=== PATIENT | female | born 1945 | race Caucasian/White ===

== ENCOUNTER → 2017-10-16 13:09 | Outpatient (CLI) | payer MEDICARE, OTHER, SELFPAY ==
--- NOTE | 2017-10-16 13:09 | DT_ITS ---
This patient was seen during an EMR downtime October 13, 2017 - October 20, 2017. This patient may have a combination of paper and electronic documentation or all paper documentation. All documentation is viewable within the e-chart portion of [employer] for each patient visit.
--- NOTE | 2017-10-16 13:11 | BI_ITS ---
MAMMOGRAPHY - BILATERAL SCREENING REASON FOR EXAM: Female, 72 years old. Routine annual screening examination. PERTINENT HISTORY: Non-contributory. TECHNIQUE: Digital bilateral breast suyapa (3D mammographic acquisition) in the CC and MLO projections. 2-D mediolateral oblique (MLO) and craniocaudad (CC) views of both breasts were obtained. CAD: Full Field Digital Mammography with Computer Added Detection was performed. COMPARISON: Comparison is made with prior study dated August 12, 2016 and July 24, 2015. FINDINGS: Breast Composition: There are scattered areas of fibroglandular density. There are no dominant masses or suspicious calcifications. Stable scattered calcifications in the upper deep medial portion of the left breast. No other significant abnormalities are identified. There has been no significant change since the prior study. BI/SCREENING MAMM (CAD), BILAT IMPRESSION: Stable bilateral screening mammogram. Yearly follow-up mammogram recommended. (A) ASSESSMENT CATEGORY: BIRADS Category 2: Benign. A letter regarding these results will be sent to the patient by the facility within 30 days. Approximately 10% of breast cancers are not detected by mammography. A normal mammogram should not delay biopsy of a clinically suspicious abnormality. [id number] Electronically Signed: Fabián Brandt MD at 9:18 EDT Tel [phone], Service support ,
== END ==
PROVIDERS: Family Provider Family Medicine; PCP Family Medicine; Visit Provider Obstetrics & Gynecology
DX: Z12.31 Encounter for screening mammogram for malignant neoplasm of breast (principal)
CPT/HCPCS: 77063; 77067

== ENCOUNTER → 2018-09-24 | Outpatient (CLI) | payer MEDICARE, OTHER, SELFPAY ==
[2018-09-24 10:24] VITALS: BMI 26.9
--- NOTE | 2018-09-24 10:39 | RAD_ITS ---
STUDY: X-RAY - LEFT KNEE REASON FOR EXAM: Female, 73 years old. Pain following a fall. TECHNIQUE: 4 view(s) of the knee. COMPARISON: Comparison is made with prior study December 10, 2013. FINDINGS: Degenerative spurring is seen along the medial femoral condyle. Normal visualized proximal tibia and fibula. Normal proximal tibiofibular articulation. 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 Normal lateral femorotibial compartment. There is mild degenerative arthrosis of the patellofemoral articulation. The soft tissue structures are unremarkable. RAD/Knee 4 or More Views IMPRESSION: Degenerative arthrosis. Electronically Signed: Fabián Brandt, at 12:13 EDT , Service support ,
--- NOTE | 2018-09-24 10:39 | RAD_ITS ---
STUDY: X-RAY - PELVIS AND RIGHT HIP REASON FOR EXAM: Female, 73 years old. Right hip pain following fall. TECHNIQUE: 3 views of the pelvis and hip. COMPARISON: None. FINDINGS: There is a non-specific bowel gas pattern. There are multiple calcified phleboliths. Normal bilateral iliac wings, sacroiliac joints and visualized sacrum. Normal bilateral superior and inferior pubic rami. Normal pubic symphysis. Normal bilateral ischial tuberosities. Normal visualized femoral head. Normal acetabulum. Normal hip joint. There is a 7.3 mm calcification overlying the greater trochanter of the proximal left femur suggestive of possible bursitis. RAD/HIP, UNI W/ Pelvis 2-3 Views IMPRESSION: No acute abnormality is seen. Electronically Signed: Fabián Brandt, at 12:12 EDT , Service support ,
== END | disposition home or self-care (01) ==
LOC: HPRAD 10:36
PROVIDERS: Family Provider Family Medicine; PCP Family Medicine; Referring Provider Physician Assistant; Visit Provider Physician Assistant
DX: S79.911A Unspecified injury of right hip, initial encounter (principal); S80.02XA Contusion of left knee, initial encounter
CPT/HCPCS: 73502; 73564

== ENCOUNTER → 2018-10-21 | Outpatient (CLI) | payer MEDICARE, OTHER, SELFPAY ==
[2018-09-24 10:24] VITALS: BMI 26.9
--- NOTE | 2018-10-21 10:31 | BI_ITS ---
MAMMOGRAPHY - BILATERAL SCREENING REASON FOR EXAM: Female, 73 years old. Routine annual screening examination. PERTINENT HISTORY: Non-contributory. TECHNIQUE: Digital bilateral breast truman (3D mammographic acquisition) in the CC and MLO projections. 2-D mediolateral oblique (MLO) and craniocaudad (CC) views of both breasts were obtained. CAD: Full Field Digital Mammography with Computer Added Detection was performed. COMPARISON: Comparison is made with prior study dated October 16, 2017 and August 12, 2016. FINDINGS: Breast Composition: There are no dominant masses or suspicious calcifications. No other significant abnormalities are identified. Stable calcification in the upper medial portion of the left breast. BI/SCREEN MAMM (CAD) W/TRUMAN BILAT IMPRESSION: Stable bilateral screening mammogram. Yearly follow-up mammogram recommended. (A) ASSESSMENT CATEGORY: BIRADS Category 2: Benign. A letter regarding these results will be sent to the patient by the facility within 30 days. Approximately 10% of breast cancers are not detected by mammography. A normal mammogram should not delay biopsy of a clinically suspicious abnormality. [id number] Electronically Signed: Fabián Brandt, at 12:30 EDT , Service support ,
== END | disposition home or self-care (01) ==
LOC: OPBI 10:29
PROVIDERS: Family Provider Family Medicine; PCP Family Medicine; Referring Provider Obstetrics & Gynecology; Visit Provider Obstetrics & Gynecology
DX: Z12.31 Encounter for screening mammogram for malignant neoplasm of breast (principal)
CPT/HCPCS: 77063; 77067

== ENCOUNTER → 2019-10-27 08:52 | Outpatient (CLI) | payer MEDICARE, OTHER, SELFPAY ==
[2018-09-24 10:24] VITALS: BMI 26.9
--- NOTE | 2019-10-27 09:06 | CDU_ITS ---
Reason For Study: Carotid stenosis Rt. Velocities/BP Lt. Velocities/BP Prox CCA 99.5/20 cm/sec. Prox CCA 98.1/26.7 cm/sec. Mid CCA 102.1/25.2 cm/sec. Mid CCA 78.3/26.7 cm/sec. Dist CCA 74.7/20 cm/sec. Dist CCA 83.8/28.9 cm/sec. Prox ICA 58.6/17.9 cm/sec. Prox ICA 84.9/12.4 cm/sec. Mid ICA 70.6/26.7 cm/sec. Mid ICA 76.1/30 cm/sec. Dist ICA 96.2/29.8 cm/sec. Dist ICA 80.5/32.5 cm/sec. Rt. ICA/CCA = 1.0. Lt. ICA/CCA = 1.1. Prox ECA 96.9/12.1 cm/sec. Prox ECA 83.8/11.3 cm/sec. Rt. Vert. 53.1/14.6 cm/sec. Lt. Vert. 47.5/15.4 cm/sec. Right Extracranial There is intimal thickening but no significant atherosclerotic plaque noted in the right common carotid artery. There is intimal thickening but no significant atherosclerotic plaque noted in the right internal carotid artery. There is intimal thickening but no significant atherosclerotic plaque noted in the right external carotid artery. Antegrade flow is noted in the right vertebral artery. Left Extracranial There is intimal thickening but no significant atherosclerotic plaque noted in the left common carotid artery. There is intimal thickening but no significant atherosclerotic plaque noted in the left internal carotid artery. There is intimal thickening but no significant atherosclerotic plaque noted in the left external carotid artery. Antegrade flow is noted in the left vertebral artery. There is heterogeneous, irregular atherosclerotic plaque noted in the left bulb. Procedure Carotid Duplex [id number]. Exam performed in department. Interpretation Summary No significant atherosclerotic plaque or stenosis noted in the internal carotid arteries bilaterally. Flow within the vertebral arteries is antegrade bilaterally. Heterogeneous, irregular atherosclerotic plaque is noted in the left carotid bulb, which does not appear to be hemodynamically significant. Ordering Physician: Ruby Wesley Referring Physician: Ruby Wesley Performed By: Janice Mcnally RVT
--- NOTE | 2019-10-27 09:06 | ECHOD_ITS ---
Reason For Study: MURMUR Procedure This was a 2D Doppler, Color Flow transthoracic echocardiogram. Exam performed in department. Left Ventricle Normal LV size. Left ventricular systolic function is normal. The estimated ejection fraction is 60 %. Stage 1 diastolic dysfunction. No regional wall motion abnormalities noted. Right Ventricle Normal RV size. Normal systolic function. Atria Normal left atrium. Normal right atrium. Mitral Valve There is mild to moderate mitral annular calcification. Tricuspid Valve Normal tricuspid valve. Mild (1+) tricuspid valve insufficiency. Pulmonary artery systolic pressure is 28 mmHg. Aortic Valve Trisinus/trileaflet aortic valve. Great Vessels Normal aortic root. The pulmonary artery is normal size. Normal inferior vena cava. Pericardium/Pleural No pericardial effusion. MMode/2D Measurements & Calculations LVIDd: 4.4 cm IVSd: 0.94 cm Ao root diam: 3.7 cm LVIDs: 2.7 cm LVPWd: 0.95 cm RVDd: 3.2 cm FS: 37.6 % LAV(MOD-bp): 48.1 ml LVAd ap4: 27.8 cm2 SV(MOD-sp4): 53.1 ml LAV(MOD-bp) Indexed: 29.0 ml/m2 EDV(MOD-sp4): 80.9 ml LAV(MOD-sp2): 32.5 ml EDV(sp4-el): 81.2 ml LAV(MOD-sp4): 52.9 ml LVAs ap4: 14.4 cm2 ESV(MOD-sp4): 27.9 ml ESV(sp4-el): 27.3 ml EF(MOD-sp4): 65.5 % EF(sp4-el): 66.4 % SV(sp4-el): 53.9 ml LA dimension(2D): 4.1 cm LA A4 area: 18.8 cm2 RA A4 area: 13.9 cm2 Time Measurements MV dec time: 0.28 sec Doppler Measurements & Calculations MV E max jossue: 63.9 cm/sec Lat Peak E' Jossue: 5.7 cm/sec Med Peak E' Jossue: 4.3 cm/sec MV A max jossue: 113.5 cm/sec E/E' lat: 11.1 E/E' med: 14.8 MV E/A: 0.56 MV V2 max: 119.8 cm/sec Ao V2 max: 138.5 cm/sec LV V1 max: 95.8 cm/sec MV max P.7 mmHg Ao max P.7 mmHg LV V1 max P.7 mmHg MV V2 mean: 60.8 cm/sec Ao V2 mean: 95.5 cm/sec LV V1 mean P.3 mmHg MV mean P.8 mmHg Ao mean P.1 mmHg LV V1 mean: 71.7 cm/sec MV V2 VTI: 30.2 cm Ao V2 VTI: 28.4 cm LV V1 VTI: 23.1 cm TR max jossue: 243.4 cm/sec MV P1/2t-pr_phl: 96.6 msec TR max P.7 mmHg Interpretation Summary Normal LV size. Left ventricular systolic function is normal. The estimated ejection fraction is 60 %. Stage 1 diastolic dysfunction. There is mild to moderate mitral annular calcification. Ordering Physician: Ruby Wesley Referring Physician: Ruby Wesley Performed By: Jyade Benitez, ROXY, RVT
--- NOTE | 2019-10-27 10:52 | BI_ITS ---
MAMMOGRAPHY - BILATERAL SCREENING REASON FOR EXAM: Female, 74 years old. Routine annual screening examination. PERTINENT HISTORY: Aunt with breast cancer. TECHNIQUE: Digital bilateral breast truman (3D mammographic acquisition) in the CC and MLO projections. 2-D mediolateral oblique (MLO) and craniocaudad (CC) views of both breasts were obtained. CAD: Full Field Digital Mammography with Computer Added Detection was performed. COMPARISON: Comparison is made with prior examination dated October 21, 2018 and October 16, 2017. FINDINGS: Breast Composition: There are scattered areas of fibroglandular density. There are no dominant masses or suspicious calcifications. Stable grouping of the calcifications in the slightly upper deep medial portion of the left breast. No other significant abnormalities are identified. There has been no significant change since the prior study. BI/SCREEN MAMM (CAD) W/TRUMAN BILAT IMPRESSION: Stable bilateral screening mammogram. Yearly follow-up mammogram recommended. (A) ASSESSMENT CATEGORY: BIRADS Category 2: Benign. A letter regarding these results will be sent to the patient by the facility within 30 days. Approximately 10% of breast cancers are not detected by mammography. A normal mammogram should not delay biopsy of a clinically suspicious abnormality. [id number] Electronically Signed: Fabián Brandt, at 12:31 EDT , Service support ,
--- NOTE | 2019-10-27 10:53 | BD_ITS ---
STUDY: DUAL ENERGY X-RAY ABSORPTIOMETRY / DXA REASON FOR EXAM: Female, 74 years old. Patient is postmenopausal. Loss of height. TECHNIQUE: Bone Mineral Density (BMD) measurements of lumbar spine and bilateral hips were obtained. COMPARISON: Comparison is made with prior study dated August 09, 2008. FINDINGS: Lumbar Spine (L1-L4): g/cm2 (0.983) / T-score (-1.6) / Z-score (0.2) Findings are suggestive of osteopenia with a moderate fracture risk. Left Femur Total: g/cm2 (0.829) / T-score (-1.4) / Z-score (0.4) Left Femoral Neck: g/cm2 (0.820) / T-score (-1.6) / Z-score (0.4) Right Femur Total: g/cm2 (0.794) / T-score (-1.7) / Z-score (0.1) Right Femoral Neck: g/cm2 (0.839) / T-score (-1.4) / Z-score (0.6) The T-Scores on the most recent prior examination were: Lumbar Spine (L1-L4): There has been worsening of bone density since the previous examination. Left Femur Total: which represents a worsening of 6.3%. Right Femur Total: which represents a worsening of 9.4%. BD/Dexa Bone Density Study IMPRESSION: The patient is considered osteopenic as outlined below according to World Harvey Organization (WHO) criteria with a moderate fracture risk. There has been worsening of bone density since the previous examination. Reference Information: The T-score is the number of standard deviations above or below the standard which is normal for young adults at their peak bone mineral density. The World Health Organization (WHO) interprets the T-scores as follows: Above -1 Normal bone density Between -1 and -2.5 Osteopenia Equal to / or below -2.5 Osteoporosis As a practical clinical guideline, osteopenia may be graded as follows: Mild -1 through -1.5 Moderate -1.6 through -2.0 Severe -2.1 through -2.4 The Z-score is the number of standard deviations above or below age-matched controls. A Z-score of less than -1.5 would be considered abnormal. References: 1. NIH Osteoporosis and Related Bone Diseases http://www.osteo.org 2. International Society for Clinical Densitometry http://www.iscd.org 3. National Osteoporosis Foundation http://www.nof.org Electronically Signed: Fabián Brandt, at 13:33 EDT , Service support ,
== END ==
PROVIDERS: PCP Nurse Practitioner Family; Referring Provider Nurse Practitioner Family; Visit Provider Nurse Practitioner Family
DX: I65.22 Occlusion and stenosis of left carotid artery (principal); R01.1 Cardiac murmur, unspecified; M81.0 Age-related osteoporosis without current pathological fracture; Z12.31 Encounter for screening mammogram for malignant neoplasm of breast
CPT/HCPCS: 77063; 77067; 77080; 93306; 93880

== ENCOUNTER 2020-07-10 08:28 | Outpatient (RCR) | payer MEDICARE, OTHER, SELFPAY ==
[2018-09-24 10:24] VITALS: BMI 26.9
== END 2020-07-10 23:59 ==
LOC: IMMUN 08:28
PROVIDERS: PCP Nurse Practitioner Family; Visit Provider Family Medicine
DX: Z23 Encounter for immunization (principal)
CPT/HCPCS: 0011A; 0012A

== ENCOUNTER → 2020-12-08 08:38 | Outpatient (CLI) | payer MEDICARE, OTHER, SELFPAY ==
[2018-09-24 10:24] VITALS: BMI 26.9
--- NOTE | 2020-12-08 10:00 | BI_ITS ---
MAMMOGRAPHY - BILATERAL SCREENING 3-D TOMOSYNTHESIS REASON FOR EXAM: Female, 75 years old. Routine screening PERTINENT HISTORY: Aunt with breast cancer.. TECHNIQUE: 2-D mammograms and 3-D Tomosynthesis of the breast (s) were performed. CAD was performed. COMPARISON: 10/27/2019 FINDINGS: The breast composition is composed of scattered fibroglandular density. Scattered benign calcifications are seen. No dense spiculated masses or suspicious microcalcifications are identified. No architectural distortion is identified. There is no skin thickening or retraction. There has been no significant change since the prior study. BI/SCRN MAMM (CAD)W/TRUMAN BILAT IMPRESSION: No mammographic signs of malignancy. Routine yearly mammograms recommended. ASSESSMENT CATEGORY: BIRADS Category 2: Benign. A letter regarding these results will be sent to the patient by the facility within 30 days. FOLLOW UP RECOMMENDATION: Yearly follow up mammogram recommended. (A) Approximately 10% of breast cancers are not detected by mammography. A normal mammogram should not delay biopsy of a clinically suspicious abnormality. Electronically Signed: Bipin Adams MD at 11:06 EDT , Service support ,
== END ==
PROVIDERS: PCP Nurse Practitioner Family; Referring Provider Nurse Practitioner Family; Visit Provider Nurse Practitioner Family
DX: Z12.31 Encounter for screening mammogram for malignant neoplasm of breast (principal)
CPT/HCPCS: 77063; 77067

== ENCOUNTER → 2021-12-12 | Outpatient (CLI) | payer MEDICARE, OTHER, SELFPAY ==
--- NOTE | 2021-12-12 12:23 | BI_ITS ---
MAMMOGRAPHY - BILATERAL SCREENING 3-D TOMOSYNTHESIS REASON FOR EXAM: Female, 76 years old. Annual screening mammogram. PERTINENT HISTORY: History of breast cancer in aunt. TECHNIQUE: 2-D mammograms and 3-D Tomosynthesis of the breast (s) were performed. CAD was performed. COMPARISON: 11/08/2020, 10/27/2019, 12/08/2020. FINDINGS: The breast composition is composed of scattered fibroglandular density. Stable bilateral benign calcifications, left greater than right. No dense spiculated masses or suspicious microcalcifications are identified. No architectural distortion is identified. There is no skin thickening or retraction. BI/SCRN MAMM (CAD)W/TRUMAN BILAT IMPRESSION: No interval change and no mammographic signs of malignancy. Routine yearly mammograms recommended. ASSESSMENT CATEGORY: BIRADS Category 2: Benign. A letter regarding these results will be sent to the patient by the facility within 30 days. FOLLOW UP RECOMMENDATION: Yearly follow up mammogram recommended. (A) Approximately 10% of breast cancers are not detected by mammography. A normal mammogram should not delay biopsy of a clinically suspicious abnormality. Electronically Signed: Ricardo Morin MD at 9:56 EDT ,
== END | disposition home or self-care (01) ==
LOC: OPBI 12:20
PROVIDERS: PCP Nurse Practitioner Family; Visit Provider Nurse Practitioner Family
DX: Z12.31 Encounter for screening mammogram for malignant neoplasm of breast (principal)
CPT/HCPCS: 77063; 77067

== ENCOUNTER 2022-04-02 08:57 | Outpatient (CLI) | payer MEDICARE, OTHER, SELFPAY ==
--- NOTE | 2022-04-02 09:05 | BD_ITS ---
STUDY: DUAL ENERGY X-RAY ABSORPTIOMETRY / DXA REASON FOR EXAM: Female, 76 years old. OSTEO TECHNIQUE: Bone Mineral Density (BMD) measurements of lumbar spine and bilateral hips were obtained. COMPARISON: Comparison is made with prior study dated 10/27/2019. FINDINGS: Lumbar Spine (L1-L4): g/cm2 (0.859) / T-score (-1.7) / Z-score (0.9) Findings are suggestive of osteopenia with a moderate fracture risk. Left Femur Total: g/cm2 (0.740) / T-score (-1.7) / Z-score (0.3) Left Femoral Neck: g/cm2 (0.646) / T-score (-1.8) / Z-score (0.4) Right Femur Total: g/cm2 (0.726) / T-score (-1.8) / Z-score (0.2) Right Femoral Neck: g/cm2 (0.627) / T-score (-2.0) / Z-score (0.3) The T-Scores on the most recent prior examination were: Lumbar Spine (L1-L4): There has been worsening of bone density since the previous examination. Left Femur Total: which represents a worsening of 3.7%. Right Femur Total: which represents a worsening of 1.1%. BD/Dexa Bone Density Study IMPRESSION: The patient is considered osteopenic as outlined below according to World Harvey Organization (WHO) criteria with a moderate fracture risk. There has been worsening of bone density since the previous examination. Reference Information: The T-score is the number of standard deviations above or below the standard which is normal for young adults at their peak bone mineral density. The World Health Organization (WHO) interprets the T-scores as follows: Above -1 Normal bone density Between -1 and -2.5 Osteopenia Equal to / or below -2.5 Osteoporosis As a practical clinical guideline, osteopenia may be graded as follows: Mild -1 through -1.5 Moderate -1.6 through -2.0 Severe -2.1 through -2.4 The Z-score is the number of standard deviations above or below age-matched controls. A Z-score of less than -1.5 would be considered abnormal. References: 1. NIH Osteoporosis and Related Bone Diseases www osteo.org 2. International Society for Clinical Densitometry www iscd.org 3. National Osteoporosis Foundation www nof.org Electronically Signed: Fabián Brandt MD at 9:00 EST ,
== END 2022-04-02 23:59 | disposition home or self-care (01) ==
LOC: OPBD 08:57
PROVIDERS: PCP Nurse Practitioner Family; Referring Provider Nurse Practitioner Family; Visit Provider Nurse Practitioner Family
DX: M85.89 Other specified disorders of bone density and structure, multiple sites (principal)
CPT/HCPCS: 77080

== ENCOUNTER → 2022-12-30 | Outpatient (CLI) | payer MEDICARE, OTHER, SELFPAY ==
--- NOTE | 2022-12-30 13:42 | BI_ITS ---
MAMMOGRAPHY - BILATERAL SCREENING REASON FOR EXAM: Female, 77 years old. Routine annual screening examination. PERTINENT HISTORY: Aunt with breast cancer. TECHNIQUE: Digital bilateral breast truman (3D mammographic acquisition) in the CC and MLO projections. 2-D mediolateral oblique (MLO) and craniocaudad (CC) views of both breasts were obtained. CAD: Full Field Digital Mammography with Computer Added Detection was performed. COMPARISON: Screening mammogram from 12/12/2021, 12/08/2020. FINDINGS: Breast Composition: There are scattered areas of fibroglandular density. There are no dominant masses or suspicious calcifications. Stable bilateral benign-appearing breast calcifications, greater in the left breast. No other significant abnormalities are identified. There has been no significant change since the prior study. BI/SCRN MAMM (CAD)W/TRUMAN BILAT IMPRESSION: Stable bilateral screening mammogram. Yearly follow-up mammogram recommended. (A) ASSESSMENT CATEGORY: BIRADS Category 2: Benign. A letter regarding these results will be sent to the patient by the facility within 30 days. Approximately 10% of breast cancers are not detected by mammography. A normal mammogram should not delay biopsy of a clinically suspicious abnormality. Electronically Signed: Silas Albert DO at 16:05 EDT ,
== END | disposition home or self-care (01) ==
LOC: OPBI 13:39
PROVIDERS: PCP Nurse Practitioner Family; Referring Provider Nurse Practitioner Family; Visit Provider Nurse Practitioner Family
DX: Z12.31 Encounter for screening mammogram for malignant neoplasm of breast (principal); Z80.3 Family history of malignant neoplasm of breast
CPT/HCPCS: 77063; 77067

== ENCOUNTER 2023-01-29 17:36 | Emergency (ER) | payer MEDICARE, OTHER, SELFPAY ==
[2023-01-29 17:37] VITALS: BP 189/90; PULSE 80; RESP 16; TEMP 36.4; O2SAT 98; BMI 26.4
--- NOTE | 2023-01-29 18:30 | EX.ED.DYSGE1 ---
HPI <LORENA Noonan - Last Filed: 01/29/23 19:59> History of Present Illness Chief Complaint: Hypertension Narrative Narrative: Patient presenting today with concerns for elevated blood pressure. She reports that she was at the dentist this morning and her blood pressure was 164/96. They then took it again and was around 200 systolic. She went home and began taking her blood pressure throughout the day and noticed that it was continuously elevated. She reports that she feels, absolutely fine. She does not normally check her blood pressure but does have a history of hypertension and takes losartan and hydrochlorothiazide. She is compliant with her medication. She was last at her PCP a week ago where her blood pressure was normal. She denies any chest pain, shortness of breath, visual changes, dizziness. PFSH <LORENA Noonan - Last Filed: 01/29/23 19:59> PFSH Medical History history of colonoscopy complication Hypertension polyps removal Vertigo Home Medications losartan 100 mg-hydrochlorothiazide 25 mg tablet 1 tab PO DAILY #1 TAB 07/28/14 [Rx Last Taken 09/28/15 08:00] Allergy/AdvReac Type Severity Reaction Status Date / Time No Known Allergies Allergy Verified 01/29/23 17:37 Family History Other Cancer Diabetes Social History Smoking Status: Never smoker alcohol intake: never ROS <LORENA Noonan - Last Filed: 01/29/23 19:59> ROS ED Constitutional Constitutional ED: Denies chills or fever(s) Eyes Eyes: Denies change in vision Cardiovascular Cardiovascular: Denies chest pain or palpitations Respiratory/Chest Respiratory/Chest: Denies cough or dyspnea Gastrointestinal Gastrointestinal: Denies abdominal pain, nausea or vomiting Musculoskeletal Musculoskeletal: Denies arthralgias or myalgias Neurologic Neurologic: Denies dizziness, headache(s), paresthesias or weakness EXAM <LORENA Noonan - Last Filed: 01/29/23 19:59> Physical Exam Const Vital Signs: 01/29/23 17:37 01/29/23 19:30 01/29/23 19:31 Temperature 97.5 F L Temperature Source Temporal Pulse Rate 80 Respiratory Rate 16 16 Respiratory Pattern Normal Blood Pressure 189/90 H Blood Pressure Mean 123 Pulse Ox 98 Positive well nourished, well developed and no apparent distress General Appearance ED: well developed HEENT Reports normocephalic and head/scalp atraumatic Mouth ED: Yes moist mucous membranes normal Eyes PERRL and EOMs intact bilaterally Neck full ROM and supple Chest Wall inspection of chest normal Resp normal respiratory effort and clear to auscultation bilaterally Cardio regular rate and regular rhythm GI soft to palpation, non-tender, non-distended and no masses Back/Spine normal ROM and normal to inspection Extremity normal to inspection and full ROM Neuro oriented x3, CN's II-XII intact bilaterally, moves all extremities, no focal motor deficits and no sensory deficits noted Sensorium / Orientation: awake and alert Psych mental status grossly normal and thought process normal Skin no rashes or lesions noted and no wounds <Dr. Mikey Wilder MD - Last Filed: 01/29/23 19:13> Physical Exam Const Vital Signs: 01/29/23 17:37 01/29/23 19:30 01/29/23 19:31 Temperature 97.5 F L Temperature Source Temporal Pulse Rate 80 Respiratory Rate 16 16 Respiratory Pattern Normal Blood Pressure 189/90 H Blood Pressure Mean 123 Pulse Ox 98 MDM <LORENA Noonan - Last Filed: 01/29/23 19:59> [facility] Narrative Medical decision making narrative: Patient presenting with asymptomatic hypertension. She is on antihypertensives at home. She is well-appearing and in no acute distress, she is around 189/90 here. I have encouraged her to begin taking her blood pressure twice a day and monitoring this so that she can show her PCP and medication changes can be made if needed. She has an NIH of 0. I do not feel that any labs or imaging is indicated at this time. She is comfortable with being discharged home. I do not feel that she needs any treatment at this time. She will be discharged home in stable condition and is comfortable with plan. I have personally performed a face to face assessment of the patient and have reviewed the MANSI Note. I performed a substantive portion of the visit including all aspects of the following. My hedrick findings include: History is 77-year-old female with known history of hypertension on losartan and hydrochlorothiazide. Was at the dentist office today had elevated blood pressure so they sent her to be evaluated. She denies any complaints. No chest pain. No headache. Exam is [well-appearing 77-year-old female. Initial blood pressure 189/90. HEENT exam unremarkable. Lungs clear. Heart regular rhythm. Abdomen soft nontender. Neurologically she is awake and alert with no focal motor deficits. 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 Normal speech. NIH is 0. ] Medical Decision Making [patient doing well. Asymptomatic. She is comfortable being discharged home with outpatient follow-up. Acute on chronic hypertension.] Other additions or changes: [None] <Dr. Mikey Wilder MD - Last Filed: 01/29/23 19:13> [facility] MDM Narrative Medical decision making narrative: I have personally performed a face to face assessment of the patient and have reviewed the MANSI Note. I performed a substantive portion of the visit including all aspects of the following. My hedrick findings include: History is 77-year-old female with known history of hypertension on losartan and hydrochlorothiazide. Was at the dentist office today had elevated blood pressure so they sent her to be evaluated. She denies any complaints. No chest pain. No headache. Exam is [well-appearing 77-year-old female. Initial blood pressure 189/90. HEENT exam unremarkable. Lungs clear. Heart regular rhythm. Abdomen soft nontender. Neurologically she is awake and alert with no focal motor deficits. 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 Normal speech. NIH is 0. ] Medical Decision Making [patient doing well. Asymptomatic. She is comfortable being discharged home with outpatient follow-up. Acute on chronic hypertension.] Other additions or changes: [None] History & Record Review Discussion w/independent historian: Patient and Family Discharge Plan Triage Chief Complaint: Hypertension ED Midlevel Provider: Kristy Huddleston ED Provider: Mikey Wilder Dx/Rx/DC Orders Clinical Impression: Hypertension Instructions: Controlling High Blood Pressure Prescriptions: No Action losartan-hydrochlorothiazide 1 TAB tablet 1 tab PO DAILY Qty: 1 0RF Patient Comments: blood pressure Primary Care Provider: Ruby Wesley TRAINING AND DEVELOPMENT SPECIALIST Referrals: Ruby Wesley TRAINING AND DEVELOPMENT SPECIALIST, TRAINING AND DEVELOPMENT SPECIALIST-C [Primary Care Provider] - 5-7 Days Activity Restrictions/Additional Instructions: Begin keeping track of your blood pressure and follow-up with your PCP. Return for any worsening of your symptoms. Disposition Disposition: Home, Self Care Discharge Date/Time: 01/29/23 19:32
[2023-01-29 19:31] VITALS: RESP 16
== END 2023-01-29 19:32 | disposition home or self-care (01) ==
PROVIDERS: Emergency Provider Emergency Medicine; PCP Nurse Practitioner Family; Visit Provider Emergency Medicine
DX: I10 Essential (primary) hypertension (principal); Z79.899 Other long term (current) drug therapy
CPT/HCPCS: 99282

== ENCOUNTER → 2023-03-06 | Outpatient (CLI) | payer MEDICARE, OTHER, SELFPAY ==
--- NOTE | 2023-03-06 12:53 | ECHOD_ITS ---
Reason For Study: MITRAL ANNULAR CALCIFICATION Procedure This was a 2D Doppler, Color Flow transthoracic echocardiogram. Exam performed in department. Left Ventricle Normal size and thickness. The left ventricular ejection fraction is 65 %. Stage 2 diastolic dysfunction. Right Ventricle Normal right ventricle. Atria The left atrium is mildly enlarged. Normal right atrium. Mitral Valve There is Mild focal posterior mitral annular calcification. Mild (1+) mitral valve insufficiency. Tricuspid Valve Mild tricuspid valve insufficiency. Right ventricular systolic pressure estimated to be 35 mmHg. Aortic Valve Trisinus/trileaflet aortic valve. Pulmonic Valve The pulmonic valve is not well visualized. Mild (1+) pulmonic valve insufficiency. Great Vessels Normal sized aortic root. Pericardium/Pleural No pericardial effusion. Epicardial fat. MMode/2D Measurements & Calculations LVIDd: 4.9 cm IVSd: 0.87 cm Ao root diam: 3.2 cm LVIDs: 3.0 cm LVPWd: 1.0 cm RVDd: 3.1 cm FS: 37.4 % LAV(MOD-bp): 69.6 ml LVAd ap4: 28.1 cm2 LVAd ap2: 22.7 cm2 LAV(MOD-bp) Indexed: 40.7 ml/m2 LVLd ap4: 7.8 cm LVLd ap2: 7.0 cm LAV(MOD-sp2): 63.8 ml EDV(MOD-sp4): 83.2 ml EDV(MOD-sp2): 59.7 ml LAV(MOD-sp4): 71.4 ml EDV(sp4-el): 86.1 ml EDV(sp2-el): 62.6 ml LVAs ap4: 14.5 cm2 LVAs ap2: 11.9 cm2 LVLs ap4: 6.5 cm LVLs ap2: 6.5 cm ESV(MOD-sp4): 29.8 ml ESV(MOD-sp2): 18.7 ml ESV(sp4-el): 27.6 ml ESV(sp2-el): 18.5 ml EF(MOD-sp4): 64.2 % EF(MOD-sp2): 68.7 % EF(sp4-el): 68.0 % SV(MOD-sp4): 53.4 ml SV(MOD-sp2): 41.0 ml SV(sp4-el): 58.5 ml LA dimension(2D): 4.2 cm LA A4 area: 21.7 cm2 RA A4 area: 12.7 cm2 TAPSE: 2.4 cm Time Measurements MV dec time: 0.25 sec Doppler Measurements & Calculations MV E max jossue: 76.8 cm/sec Lat Peak E' Jossue: 8.2 cm/sec Med Peak E' Jossue: 6.0 cm/sec MV A max jossue: 113.1 cm/sec E/E' lat: 9.3 E/E' med: 12.7 MV E/A: 0.68 MV V2 max: 126.1 cm/sec MV P1/2t max jossue: 82.0 cm/sec Ao V2 max: 188.3 cm/sec MV max P.4 mmHg MV P1/2t: 79.7 msec Ao max P.2 mmHg MV V2 mean: 68.1 cm/sec MV dec slope: 301.4 cm/sec2 Ao V2 mean: 126.2 cm/sec MV mean P.1 mmHg Ao mean P.4 mmHg MV V2 VTI: 30.6 cm MVA(P1/2t): 2.8 cm2 Ao V2 VTI: 44.5 cm AV (velocity ratio): 0.65 LV V1 max: 115.2 cm/sec PA V2 max: 133.9 cm/sec TR max jossue: 310.6 cm/sec LV V1 max P.3 mmHg PA V2 mean: 93.5 cm/sec TR max P.0 mmHg LV V1 mean P.0 mmHg LV V1 mean: 81.0 cm/sec LV V1 VTI: 28.8 cm ECHO/Echo Complete Interpretation Summary The left ventricular ejection fraction is 65 %. Stage 2 diastolic dysfunction. The left atrium is mildly enlarged. Mild (1+) mitral valve insufficiency. There is Mild focal posterior mitral annular calcification. Mild (1+) pulmonic valve insufficiency. Mild tricuspid valve insufficiency. Ordering Physician: Margie Adams Referring Physician: Margie Adams Performed By: Gwendolyn Langley, ROXY, RVT
== END | disposition home or self-care (01) ==
LOC: CVS 12:52
PROVIDERS: PCP Nurse Practitioner Family
DX: I10 Essential (primary) hypertension (principal); I34.81 Nonrheumatic mitral (valve) annulus calcification
CPT/HCPCS: 93306

== ENCOUNTER → 2023-10-09 | Outpatient (CLI) | payer MEDICARE, OTHER, SELFPAY ==
--- NOTE | 2023-10-09 08:39 | CT_ITS ---
STUDY: CT ABDOMEN AND PELVIS WITH CONTRAST REASON FOR EXAM: Female, 78 years old. LUQ MASS ON RAD RADIATION DOSAGE (If Supplied By Facility): CTDIvol = ( 13.84 ) mGy, DLP = ( 656.39 ) mGycm TECHNIQUE: IV 100mL Isovue-300 was administered. Transaxial images were obtained from the dome of the diaphragm to the symphysis pubis in the arterial, nephrographic and excretory phases. Multiplanar coronal and sagittal images were reformatted. The protocol utilizes one or more of the following dose reduction techniques: automated exposure control, adjustment of mA and/or kV according to patient size,and/or use of iterative reconstruction technique. COMPARISON: Prior study dated: 09/29/2015 FINDINGS: The visualized lung bases are unremarkable. The visualized portions of the heart are within normal limits. Normal liver. No evidence of calcified gallstones. Small density in the dome of the gallbladder could represent small gallbladder polyp. Normal spleen. Normal pancreas. Stable 1.3 cm right adrenal adenoma. Large cystic lesion in the left adrenal gland with peripheral calcifications measuring about 7 x 6.7 x 5.5 cm essentially unchanged since prior exam. There is a small hiatal hernia. Normal in caliber small bowel loops. Sigmoid diverticulosis without evidence of acute diverticulitis. The appendix is visualized and appears normal. There is atherosclerotic calcification of the abdominal aorta with elongation and tortuosity, but without a demonstrated aneurysm. No retroperitoneal adenopathy. 8 mm simple cyst in the lower pole of the right kidney. Anteriorly malrotated left kidney. 6 mm nonobstructing stone in the right kidney unchanged. No evidence of hydronephrosis. Normal urinary bladder. Uterine calcifications consistent with calcified uterine fibroids. No free fluid. Tiny umbilical hernia containing fat. Degenerative changes of the spine. Narrowing of L3-L4 disc space with grade 1 anterolisthesis of L3 over L4 unchanged. CT/Abdomen/Pelvis W IV Cont ONLY IMPRESSION: 1. No focal acute inflammatory process. 2. Large left adrenal calcified cystic lesion unchanged prior exam could be due to previous hemorrhage. 3. Small nonobstructing left renal stone without evidence of hydronephrosis. 4. Diverticulosis without evidence of acute diverticulitis. Electronically Signed: Romel Ibrahim MD at 11:10 EDT ,
[2023-10-09 09:30] LABS: CREATININE FINGERSTICK < 1.0 mg/dL (0.55-1.02); EGFR FINGERSTICK > 60.0000 mL/min (>60)
== END | disposition home or self-care (01) ==
LOC: CT 08:31
PROVIDERS: PCP Nurse Practitioner Family; Referring Provider Nurse Practitioner Family; Visit Provider Nurse Practitioner Family
DX: R19.02 Left upper quadrant abdominal swelling, mass and lump (principal)
CPT/HCPCS: 74177; Q9967

== ENCOUNTER 2023-11-17 10:00 | Outpatient (RCR) | payer MEDICARE, OTHER, SELFPAY ==
--- NOTE | 2023-10-13 13:45 | HP.PTEVAL_ITS ---
Patient's Visit Information Visit Information Visit Information: ANA OMER is a 78 year old F referred to Physical Therapy by Dr. Ishan Vega DO with a diagnosis of SCIATICA LEFT SIDE. Date of Evaluation: 10/13/23 Physical Therapist: Aleksandr Aguayo, PT, Cert MDT, OCS Visit Plan Frequency: 2x /Week Duration: 4 Weeks Plan: PT INTERVENTIONS LUMBAR FLEXION ,DLS ,POSTURAL EX'S ,STRENGTHENING AND MODALITIES NEEDED Subjective Subjective: This 78 y/o female presents to physical therapy with lumbar radiculopathy. Patient has had left sciatica ~ 2 months. Seen Orthopedics ,did x-rays lumbar DDD ,and had CTSCAN due to finding a mass. Patient tried prednisone. Tried meloxicam . Patient reports ~ 50 % better. Location lateral leg to knee no back pain. Patient denies paresthesia/tingling ,symptoms described as ache. Coughing/sneezing-. Bowel/bladder-. Patient pain affects sleeping. Patient aggravating standing ,walking ,in/out car,bending /lifting. Alleviating factors rest heat. Patient condition affects QOL and function. Patient dealing with vertigo. Patient goals decrease pain and walk. SOCIAL: VOCATION: retire Pain Left Lower Extremity: Pain Intensity (Out of 10): 6 Pain Intensity Range: 10 Objective Objective: POSTURE : WFL PALAPTION: unremarkable SYMMETRIES: align NEURO: denies paresthesia/tingling ,reflexes L3-4 ,L4-5 ,L5- S1 1/3 MMT: quads/hams 4/5 ,hip flexion /abduction 4/5 ,ankle 4/5 PROM: hip IR 20 degrees bilateral LUMBAR ROM: flexion/extension WFL ,side glides min tight Special Tests L/S Slump test left side: Negative L/S Slump test right side: Negative L/S Left Straight Leg Raise: Negative L/S Right Straight Leg Raise: Negative Lumbar Standing: Flexion - Mechanical Response: No effect Lumbar Standing: Flexion - Symptoms During Testing: No effect Lumbar Standing: Flexion - Symptoms After Testing: No effect Lumbar Standing: Extension - Mechanical Response: No effect Lumbar Standing: Extension - Symptoms During Testing: No effect Lumbar Standing: Extension - Symptoms After Testing: No effect Lumbar Standing: Right Side Glides - Mechanical Response: No effect Lumbar Standing: Right Side [place] - Symptoms During Testing: No effect Lumbar Standing: Right Side [place] - Symptoms After Testing: No effect Lumbar Standing: Left Side [place] - Mechanical Response: No effect Lumbar Standing: Left Side [place] - Symptoms During Testing: No effect Lumbar Standing: Left Side [place] - Symptoms After Testing: No effect Lumbar Lying: Flexion - Mechanical Response: No effect Lumbar Lying: Flexion - Symptoms During Testing: Decreases Lumbar Lying: Flexion - Symptoms After Testing: No better Comments:: Seated back flexion Balance/Special Test Scores Oswestry Low Back Score: 24 Goals Goal 1:: Patient to be I with HEP for back Goal Time Frame: 4-6 Weeks Goal 2:: Patient to improve lumbar ROM for function of recovery for lifting for housework tasks Goal Time Frame: 4-6 Weeks Goal 3:: Patient to demonstrate 50% improvement with less pain and improved function Goal Time Frame: 4-6 Weeks Goal 4:: Patient to improve back oswestry score by 5 points to improve QOL Goal Time Frame: 4-6 Weeks Goal 5:: Patient to improve ADLS and housework tasks with standing/walking with min limitations Rehabilitation Potential Physical Therapy Diagnosis: This patient has lumbar radiculopathy with pain worse with standing and walking and increases with positioning and motion testing thus benefit from skilled PT Rehabilitation Potential: Good Anticipated Interventions Patient/Client Instruction: Educate patient on: Condition and Plan of Care For the Purpose of:: To decrease pain, To increase ROM, To improve muscle performance and motor function, To improve ability to perform ADL's, To increase tolerance to activity/condition/position, To improve ability of physical actions for home/community/work/leisure, To improve health of tissue, To decrease soft tissue restriction, To increase flexibility/ROM and To improve tolerance to ADL's Therapeutic Exercise to Include: Strength training, Body mechanics, Postural training, Flexibilty training and Dynamic Lumbar Stabilization For the Purpose of:: To decrease pain, To increase ROM, To improve muscle performance and motor function, To improve ability to perform ADL's, To increase tolerance to activity/condition/position, To improve ability of physical actions for home/community/work/leisure, To improve health of tissue, To decrease soft tissue restriction, To increase flexibility/ROM and To improve tolerance to ADL's TENS: Yes IF ES: Yes Cryotherapy (ice pack, ice massage): Yes Thermo therapy (hot pack): Yes Ultrasound (thermal/non thermal): Yes For the Purpose of:: To decrease pain, To increase ROM, To improve health of tissue and To decrease soft tissue restriction Text: Thank you for the opportunity to evaluate your patient. For Medicare and Medicare HMO plans, please review the plan of care and approve it. It will need to be FAXED BACK to us at [phone] for Medicare purposes. For Medicare only, by signing this I certify the plan of care. Please let me know if there are questions or concerns regarding this plan of care. Physician Signature: Date:
--- NOTE | 2023-11-17 10:50 | HP.PTDCSUM ---
Discharge Summary D/C summary: It has been my pleasure to treat ANA OMER referred by Dr. Ishan Vega DO, with the diagnosis of SCIATICA LEFT SIDE for a total of 10 visit(s). Discharge Date: Please see the following information for a summary of their discharge status. Subjective Subjective: Doing well Pain Left Lower Extremity: Pain Intensity (Out of 10): 0 Overall Improvement % Improvement: 100 Objective Objective/Function: Pt has shown good progress overall with PT and is no longer having any lower back pain. Pt educated to be cautious with load and range with core/back machines in gym. Goals Goal 1:: Patient to be I with HEP for back Goal Progress: Goal Met Goal 2:: Patient to improve lumbar ROM for function of recovery for lifting for housework tasks Goal Progress: Goal Met Goal 3:: Patient to demonstrate 50% improvement with less pain and improved function Goal Progress: Goal Met Goal 4:: Patient to improve back oswestry score by 5 points to improve QOL Goal Progress: Goal Met Goal 5:: Patient to improve ADLS and housework tasks with standing/walking with min limitations Goal Progress: Goal Met Plan Plan: D/C TO HEP D/C Information d/c sentence: If there are questions or concerns regarding this patient's physical therapy, please feel free to call me at [phone]. Thank you for the referral of this patient. Sincerely, Aleksandr Aguayo, PT, Cert MDT, OCS Balance/Gait/Functional tests Balance/Special Test Scores Oswestry Low Back Score: 1 Improvement % Improvement: 100
== END 2023-11-17 19:00 | disposition home or self-care (01) ==
LOC: PT 10:00
PROVIDERS: PCP Nurse Practitioner Family; Referring Provider Student in an Organized Health Care Education/Training Program; Visit Provider Student in an Organized Health Care Education/Training Program
DX: R42 Dizziness and giddiness (principal); M54.32 Sciatica, left side
CPT/HCPCS: 97110; 97162; 97530

== ENCOUNTER 2023-12-02 10:30 | Outpatient (RCR) | payer MEDICARE, OTHER, SELFPAY ==
--- NOTE | 2023-11-19 14:58 | HP.PTEVAL ---
Patient's Visit Information Visit Information Visit Information: ANA OMER is a 78 year old F referred to Physical Therapy by Dr. Margie Adams DO with a diagnosis of vertigo. Date of Evaluation: 11/19/23 Physical Therapist: Aneudy Davies, JOHN PAULT, OCS, CSCS Visit Plan Frequency: 1x/Week Duration: 4-6 Weeks Plan: weekly as needed for 2-6 weeks for positional checks and progression. IE R modified dimitri and instruct after slight positive test. check positional next session and subjective. Subjective Subjective: Had some spinning starting a couple months ago with looking up or rolling L. Spins for a few seconds. Feels pretty normal in between episodes, no falls. Has had this in the past. Life is normal when she is not spinning. Retired. Sleeping is fine. Activities normal. has not had it in 3 days now which is unusual, had it daily prior. Objective Objective: Walks I into PT safe adn steady. Good balance. Transfers bed and chair I. Steps reciprocal with one rail. Cervical aROM WFL UE AROM WFL and strength 4/5. - L hallpike emma + R hallpike emma for slight quick dizzyness and up torsional nystagmus/eye discomfort 3 seconds. treated with R modified dimitri and instruction. Balance/Special Test Scores Functional Gait Assessment Score: 29 % Disability: 3.3400 Dizziness Score: 12 Goals Goal 1:: abolish dizzyness with turning in bed, lying down and looking up 100% Goal Time Frame: 4-6 Weeks Goal 2:: I management of condition Goal Time Frame: 4-6 Weeks Rehabilitation Potential Physical Therapy Diagnosis: dizzyness with head position change was effecting funciton. Rehabilitation Potential: Excellent Anticipated Interventions Patient/Client Instruction: Educate patient on: Condition and Plan of Care For the Purpose of:: To increase tolerance to activity/condition/position Comment: vesitbular/positional ex/maneuvers. For the Purpose of:: To increase tolerance to activity/condition/position Text: Thank you for the opportunity to evaluate your patient. For Medicare and Medicare HMO plans, please review the plan of care and approve it. It will need to be FAXED BACK to us at [phone] for Medicare purposes. For Medicare only, by signing this I certify the plan of care. Please let me know if there are questions or concerns regarding this plan of care. Physician Signature: Date:
--- NOTE | 2023-12-17 10:38 | HP.PTDCSUM ---
Discharge Summary D/C summary: It has been my pleasure to treat ANA OMER referred by Dr. Margie Adams DO, with the diagnosis of vertigo for a total of 3 visit(s). Discharge Date: Please see the following information for a summary of their discharge status. Subjective Subjective: No issues with dizzyness in a week. Looked up at curtains and no problem like it used to. Sleeping normal and no dizzyness with movement. Balance feels OK. Did not do HEP. Overall Improvement % Improvement: 100 Objective Objective/Function: still + test but not effecting life much if at all. wishes to keep case open in case it worsens as it has been bothering her for a while but has been good lately. Goals Goal 1:: abolish dizzyness with turning in bed, lying down and looking up 100% Goal Progress: Goal Met Goal 2:: I management of condition Goal Progress: Goal Met Plan Plan: Pt called to state she is not having any problems and wished to cancel last follow up /recheck visit. I will discontinue her at this time at her request. D/C Information d/c sentence: If there are questions or concerns regarding this patient's physical therapy, please feel free to call me at [phone]. Thank you for the referral of this patient. Sincerely, Aneudy Davies, DPT, OCS, CSCS Balance/Gait/Functional tests Balance/Special Test Scores Functional Gait Assessment Score: 29 % Disability: 3.3400 Dizziness Score: 12 Improvement % Improvement: 100
== END 2023-12-02 19:00 | disposition home or self-care (01) ==
LOC: PT 10:30
PROVIDERS: PCP Nurse Practitioner Family
DX: R42 Dizziness and giddiness (principal)
CPT/HCPCS: 97161; 97530

== ENCOUNTER → 2024-01-02 | Outpatient (CLI) | payer MEDICARE, OTHER, SELFPAY ==
--- NOTE | 2024-01-02 09:58 | BI_ITS ---
MAMMOGRAPHY - BILATERAL SCREENING REASON FOR EXAM: Female, 78 years old. Routine annual screening examination. PERTINENT HISTORY: Aunt with breast cancer. TECHNIQUE: Digital bilateral breast truman (3D mammographic acquisition) in the CC and MLO projections. 2-D mediolateral oblique (MLO) and craniocaudad (CC) views of both breasts were obtained. CAD: Full Field Digital Mammography with Computer Added Detection was performed. COMPARISON: Comparison is made with prior study dated December 30, 2022 and December 12, 2021. FINDINGS: Breast Composition: There are scattered areas of fibroglandular density. There are no dominant masses or suspicious calcifications. Stable calcifications in the upper medial aspect of the left breast. No other significant abnormalities are identified. There has been no significant change since the prior study. BI/SCRN MAMM (CAD)W/TRUMAN BILAT IMPRESSION: Stable bilateral screening mammogram. Yearly follow-up mammogram recommended. (A) ASSESSMENT CATEGORY: BIRADS Category 2: Benign. A letter regarding these results will be sent to the patient by the facility within 30 days. Approximately 10% of breast cancers are not detected by mammography. A normal mammogram should not delay biopsy of a clinically suspicious abnormality. [id number] Electronically Signed: Fabián Brandt MD at 10:48 EDT ,
== END | disposition home or self-care (01) ==
LOC: OPBI 09:57
PROVIDERS: PCP Nurse Practitioner Family; Referring Provider Nurse Practitioner Family; Visit Provider Nurse Practitioner Family
DX: Z12.31 Encounter for screening mammogram for malignant neoplasm of breast (principal); Z80.3 Family history of malignant neoplasm of breast
CPT/HCPCS: 77063; 77067

== ENCOUNTER → 2024-04-15 | Outpatient (CLI) | payer MEDICARE, OTHER, SELFPAY ==
--- NOTE | 2024-04-15 10:59 | BD_ITS ---
STUDY: DUAL ENERGY X-RAY ABSORPTIOMETRY / DXA REASON FOR EXAM: Female, 78 years old. M85.80 TECHNIQUE: Bone Mineral Density (BMD) measurements of lumbar spine and bilateral hips were obtained. COMPARISON: Comparison is made with prior study April 02, 2022. FINDINGS: Lumbar Spine (L1-L4): g/cm2 (0.824) / T-score (-1.8) / Z-score (0.9) Findings are suggestive of osteopenia with a moderate fracture risk. Left Femur Total: g/cm2 (0.710) / T-score (-1.9) / Z-score (0.2) Left Femoral Neck: g/cm2 (0.552) / T-score (-2.7) / Z-score (-0.3) Right Femur Total: g/cm2 (0.718) / T-score (-1.8) / Z-score (0.3) Right Femoral Neck: g/cm2 (0.590) / T-score (-2.3) / Z-score (0.0) The T-Scores on the most recent prior examination were: Lumbar Spine (L1-L4): There has been worsening of bone density since the previous examination. Left Femur Total: which represents a worsening of 4.1%. Right Femur Total: which represents a worsening of 1.2%. BD/Dexa Bone Density Study IMPRESSION: The patient is considered osteoporotic as outlined below according to World Harvey Organization (WHO) criteria with a high fracture risk. There has been worsening of bone density since the previous examination. Reference Information: The T-score is the number of standard deviations above or below the standard which is normal for young adults at their peak bone mineral density. The World Health Organization (WHO) interprets the T-scores as follows: Above -1 Normal bone density Between -1 and -2.5 Osteopenia Equal to / or below -2.5 Osteoporosis As a practical clinical guideline, osteopenia may be graded as follows: Mild -1 through -1.5 Moderate -1.6 through -2.0 Severe -2.1 through -2.4 The Z-score is the number of standard deviations above or below age-matched controls. A Z-score of less than -1.5 would be considered abnormal. References: 1. NIH Osteoporosis and Related Bone Diseases www osteo.org 2. International Society for Clinical Densitometry www iscd.org 3. National Osteoporosis Foundation www nof.org Electronically Signed: Fabián Brandt MD at 12:58 EST ,
== END | disposition home or self-care (01) ==
LOC: OPBD 10:53
PROVIDERS: PCP Nurse Practitioner Family; Referring Provider Nurse Practitioner Family; Visit Provider Nurse Practitioner Family
DX: M85.88 Other specified disorders of bone density and structure, other site (principal)
CPT/HCPCS: 77080

== ENCOUNTER → 2024-09-28 | Outpatient (CLI) | payer MEDICARE, OTHER, SELFPAY ==
--- NOTE | 2024-09-28 12:51 | CT_ITS ---
PROCEDURE: ABDOMEN W/WO IV CONTRAST 09/28/2024 REASON FOR EXAM: ADRENAL MASS Follow-up left adrenal nodule. TECHNIQUE: Abdomen CT with intravenous contrast. Multiplanar and multisequence images were obtained. One or more dose reduction techniques were used (e.g., Automated exposure control, adjustment of the mA and/or kV according to patient size, use of iterative reconstruction technique. PATIENT PREPARATION: Per protocol ORAL CONTRAST TYPE: None. CONTRAST: Isovue-300 VOLUME: 100 mL RADIATION DOSE SUMMARY: CTDlvol: 27.5 mGy DLP: 1806.65 mGycm COMPARISON: Prior study dated October 09, 2023. FINDINGS: Lung bases: Minimal linear scarring in the medial aspect of the right middle lobe. Calcification of the mitral valve annulus. Liver: Normal size. No mass. Gallbladder: Unremarkable Spleen: Normal size. Pancreas: Normal size without evidence of mass surrounding inflammation or ductal dilation. Adrenals: Stable 1.2 cm adenoma in the right adrenal gland. Stable 5.5 cm x 6.4 cm by 4.9 cm predominantly cystic mass in the left adrenal gland with dense calcific rim. This is unchanged. Kidneys: Nonobstructive calculus in the lower pole calyx of the left kidney. Small cyst in the lower pole of the right kidney. Bowel: Sigmoid diverticulosis small hiatal hernia. Lymph nodes: Unremarkable. Vasculature: Mild atherosclerotic calcific plaques of the abdominal aorta. Peritoneum / Retroperitoneum: Unremarkable Bones: Degenerative changes of the spine. CT/Abdomen W/WO IV Contrast IMPRESSION: Stable examination. Reading Location: [place] [id number]
== END | disposition home or self-care (01) ==
LOC: CT 12:50
PROVIDERS: PCP Nurse Practitioner Family; Referring Provider Internal Medicine Endocrinology, Diabetes & Metabolism; Visit Provider Internal Medicine Endocrinology, Diabetes & Metabolism
DX: E27.8 Other specified disorders of adrenal gland (principal)
CPT/HCPCS: 74170; Q9967

== ENCOUNTER → 2025-01-03 | Outpatient (CLI) | payer MEDICARE, OTHER, SELFPAY ==
--- NOTE | 2025-01-03 12:13 | BI_ITS ---
EXAM: SCRN MAMM (CAD)W/TRUMAN BILAT DATE: 01/03/2025 CLINICAL HISTORY: F, Age 79 y/o , SCREENING TECHNIQUE: SCRN MAMM (CAD)W/TRUMAN BILAT COMPARISON: Prior exam(s) dated 01/02/2024, 12/30/2022, and 12/12/2021. FINDINGS: TISSUE DENSITY: Must pick one of these options! Bilateral Breast Mammographic Findings: Benign vascular calcifications and round calcifications are seen in both breasts. Stable nodular masslike densities are seen in both breasts. Benign secretory type calcifications are seen in the left breast. A radiopaque clip is seen in the left breast. The biopsy was benign. Post biopsy site is stable. BI/SCRN MAMM (CAD)W/TRUMAN BILAT IMPRESSION: Benign-appearing screening stable mammogram study. OVERALL FINAL ASSESSMENT BI-RADS 2: BENIGN RECOMMENDATION: Routine annual follow-up in 1 Year A letter with findings and recommendations will be mailed to the patient. Reading Location: [id number]
== END | disposition home or self-care (01) ==
LOC: OPBI 12:12
PROVIDERS: PCP Nurse Practitioner Family; Referring Provider Nurse Practitioner Family; Visit Provider Nurse Practitioner Family
DX: Z12.31 Encounter for screening mammogram for malignant neoplasm of breast (principal)
CPT/HCPCS: 77063; 77067

== ENCOUNTER → 2025-01-12 | Outpatient (CLI) | payer MEDICARE, OTHER, SELFPAY ==
--- NOTE | 2025-01-12 14:13 | NEURO ---
NCS and/or EMG Patient Report Ordering Doctor: Ishan Vega DATE OF SERVICE: 01/12/25 Jasmin presents with complaints of numbness and tingling in the right hand. Electrodiagnostic findings: Right median motor nerve demonstrates prolonged latency with normal amplitude and conduction velocity. Right ulnar motor response within normal limits. Absent right median sensory response at the wrist and palm. Normal median and ulnar F?waves. Needle EMG testing was performed in the right upper limb. All muscles tested showed no evidence of denervation with normal motor unit action potentials. Electrodiagnostic impression: This is an abnormal study in the right upper limb. 1. Electrodiagnostic findings suggestive of right sided median mononeuropathy. This is consistent with a mild to moderate right carpal tunnel syndrome Multi Select Codes Neurology Neurology Interp Codes: 26714-26 Musc test done w/n test comp (interp) and 93990-74 Nrv cndj tst 5-6 studies (interp)
== END | disposition home or self-care (01) ==
LOC: PSN 13:18
PROVIDERS: PCP Nurse Practitioner Family; Referring Provider Student in an Organized Health Care Education/Training Program; Visit Provider Student in an Organized Health Care Education/Training Program
DX: G56.01 Carpal tunnel syndrome, right upper limb (principal); R20.2 Paresthesia of skin
CPT/HCPCS: 95886; 95909

== ENCOUNTER 2025-01-13 10:30 | Outpatient (RCR) | payer MEDICARE, OTHER, SELFPAY ==
--- NOTE | 2024-11-26 08:08 | HP.OTEVAL_ITS ---
Patient's Visit Information Visit Information Visit Information: ANA OMER is a 79 year old F, referred to Occupational Therapy by [facility], with a diagnosis of CTS. Date of Evaluation: 11/18/24 Occupational Therapist: KAIN Meredith/Tereza, CHT Subjective Subjective: This 79 year old female was seen for OT eval with dx of right CTS. Pt states she had a cortisone injection in and that made her symptoms go away. pt states she had a fall on October 10 2024 and her symptoms of tingling and numbness returned. pt states at night symptoms are worse. pt states she has been sleeping in the brace on and off but she is still getting pain and increase tingling at night that wakes her up. Pt states she has constant tingling/numb sensation. pt would like to know what more she can do to decrease her symptoms. pt is right handed pt retired but works out at [employer] using [employer] and machines. Pain right hand: Current Pain Intensity: 5 Pain Intensity Range: 4 and 6 ROM Wrist: right 75/75 left 65/45 ( splinted for fx thumb) Strength Professional Security Officer: right 45# left NT due to thumb fx Lateral Pinch: right 4# left NT Tripod Pinch: right 6# left NT Sensation Thumb: right 2.83 left 2.83 interpretation normal sensation Quick DASH-Disab of Arm,Shoulder& Hand Quick DASH Score: 75.0000 Carpal Tunnel Syndrome Total Score of Symptom & Functional Sections: 40 Goals Goal:: pt will demo a increase in right lateral and tripod pinch by 3# to increase pts ind. with ADLs by d.c Goal:: pt will report no pain greater than 1/10 to improve her ADLs and sleep through the night. Goal:: pt will report return to picking coins/buttons and other FMS at IND. level Goal:: pt will report the ability to sleep through the night with no symptoms of tingling by d.c pt will report a reduction of tingling by 70% by d/c Goal:: Pt will demo understanding of using supportive bracing 80% of workday/A DLS to decrease stress on tendon origin to allow healing and decrease pain by end of 2nd session. Rehabilitation General Assessment: pt demo with positive symptoms of right CTS. pt demo with noticeable muscle wasting of right thaner region. pt demo need for skilled OT services 1-2x week for 4 weeks to decrease symptoms of ting/numb and pain. Today therapist ed. pt on dx and use of wrist brace at night ( advised to decrease how tight she is putting it on) therapy will ed. pt on median nerve glides and extensor ex to strengthen the extensor muscles to decrease symptoms of CTS. pt demo understanding and agree to POC. Rehabilitation Potential: Good Anticipated Interventions Anticipated Interventions: Strengthening, Triggerpoint Release, Modalities, Orthoses, Joint Protection/Energy Conservation, Ergonomic Education, Education re assistive Equipment, Education re Diagnosis and Home Program Visit Plan Frequency: 1-2x /Week Duration: 4 Weeks TEXT: Thank you for the opportunity to evaluate your patient. For Medicare and Medicare HMO plans, please review the plan of care and approve it. It will need to be FAXED BACK to us at [phone] for Medicare purposes. Please let me know if there are questions or concerns regarding this plan of care. Physician Signature: Date:
--- NOTE | 2024-12-07 11:27 | HP.OTEVAL ---
Patient's Visit Information Visit Information Visit Information: ANA OMER is a 79 year old F, referred to Occupational Therapy by [facility], with a diagnosis of L thumb fracture. Date of Evaluation: 12/07/24 Occupational Therapist: Angeles De Dios Subjective Subjective: This 79 year old female arrives with order from Dr Vega for OT secondary dx of L thumb fracture. DOI 10/10/24 pt now 8 weeks and 2 days out and has been wearing thumb spica orthosis for this duration of time. Pt now able to wean from brace and begin ROM therapy. pt is R hand dominant and would like to improve ROM and use of L hand. Pain right hand: Current Pain Intensity: 0 Pain Intensity Range: 4 and 6 Objective Objective/Observation: pt arrives in pre blanca thumb spica orthosis. 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 ROM Wrist: L 60/45 R 65/65 MP: L 45 R 65 IP: L 25 R 45 Opposition: L unable R WFL ROM Comments: able to make composite fist B hands pt eval deleted after measurements taken measurements from memory --- to re measure next visit to assure accuracy Strength Abrasive Wheel Molder: right 45# left NT due to thumb fx Lateral Pinch: right 4# left NT Tripod Pinch: right 6# left NT Strength Comments: to test at later date Edema Other: none Sensation Thumb: right 2.83 left 2.83 interpretation normal sensation Sensation Comments: denies Quick DASH-Disab of Arm,Shoulder& Hand Quick DASH Score: 63.6350 Carpal Tunnel Syndrome Total Score of Symptom & Functional Sections: 40 Goals Goal:: pt will demo a increase in right lateral and tripod pinch by 3# to increase pts ind. with ADLs by d.c Goal:: pt will report no pain greater than 1/10 to improve her ADLs and sleep through the night. Goal:: pt will report return to picking coins/buttons and other FMS at IND. level Goal:: pt will report the ability to sleep through the night with no symptoms of tingling by d.c pt will report a reduction of tingling by 70% by d/c Goal:: Pt will demo understanding of using supportive bracing 80% of workday/ADLS to decrease stress on tendon origin to allow healing and decrease pain by end of 2nd session. Goal:100% adherence to protocol: Yes Goal:Daily scar massage when approriate: Yes Goal:ROM equal to unaffected hand: Yes Goal:Abrasive Wheel Molder/Pinch strength at least 75% of unaffected hand: Yes Comment: once cleared Goal:Full use of affected hand in daily activities including work: Yes Comment: quick dash Other Goal: pt will improve quick dash by 15 points or more (63.63) in order to improve use of L hand during day to day tasks pt will verbalize/demonstrate 100% accuracy in proper joint protection and positioning Rehabilitation General Assessment: This 79 year old female arrives with secondary dx of L thumb fracture. Per pt fracture at P2 of thumb. Pt presents with limitations in ROM anticipated decreased strength, decreased ability to use hand in functional tasks indicating need for OT services 1-2x a week for 4-6 weeks for return to PLOF. pt would benefit from education on proper joint protection as well as positioning to assure healing and return to functional use. Rehabilitation Potential: Good Anticipated Interventions Anticipated Interventions: A/AAROM/PROM, Strengthening, Scar Care, Desensitization, Modalities, Orthoses, Joint Protection/Energy Conservation, Fine Motor Coord/Edmund, Education re Diagnosis and Home Program Visit Plan Frequency: 1-2x /Week Duration: 4-6 Weeks General Plan: AROM/AAROM/PROM strengthening once indicated joint protection and positioning TEXT: Thank you for the opportunity to evaluate your patient. For Medicare and Medicare HMO plans, please review the plan of care and approve it. It will need to be FAXED BACK to us at [phone] for Medicare purposes. Please let me know if there are questions or concerns regarding this plan of care. Physician Signature: Date:
--- NOTE | 2025-01-11 10:30 | HP.OTREVAL ---
Re-Evaluation Intro: Ruby Wesley, VY-C, It has been my pleasure to treat ANA OMER over the last 10 visits for L thumb fracture. Please see the progress note below for an update on the occupational therapy plan of care! Subjective Subjective: pt arrives doing well overall states she is having pain but coming from CMC region states possibly just her arthritis. getting a nerve conduction to R wrist tomorrows date. 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 with ADLs by d.c Goal:: pt will report no pain greater than 1/10 to improve her ADLs and sleep through the night. LUE no pain Goal:: pt will report return to picking coins/buttons and other FMS at IND. level reports I in buttons and zippers at this time Goal:: pt will report the ability to sleep through the night with no symptoms of tingling by d.c pt will report a reduction of tingling by 70% by d/c Goal:: Pt will demo understanding of using supportive bracing 80% of workday/ADLS to decrease stress on tendon origin to allow healing and decrease pain by end of 2nd session. Goal Progress: Goal Met Goal:100% adherence to protocol: Yes Goal:Daily scar massage when approriate: Yes Goal Progress: Goal Met Goal:ROM equal to unaffected hand: Yes Goal Progress: Progressing Goal:Manager Agriculture/Pinch strength at least 75% of unaffected hand: Yes Goal Progress: Progressing Goal:Full use of affected hand in daily activities including work: Yes Goal Progress: Progressing Other Goal: pt will improve quick dash by 15 points or more (63.63) in order to improve use of L hand during day to day tasks GOAL MET pt will verbalize/demonstrate 100% accuracy in proper joint protection and positioning GOAL MET Anticipated Interventions Anticipated Interventions Anticipated Interventions: A/AAROM/PROM, Strengthening, Scar Care, Desensitization, Modalities, Orthoses, Joint Protection/Energy Conservation, Fine Motor Coord/Edmund, Education re Diagnosis and Home Program Re-Evaluation Ending Re-evaluation ending: Please do not hesitate to contact me at [phone] by phone or if you have questions or concerns regarding this new plan of care! Sincerely, Angeles De Dios
--- NOTE | 2025-01-13 12:12 | HP.OTDCSUM ---
Discharge Summary D/C Summary: It has been my pleasure to treat ANA OMER under orders from [facility], for the diagnosis of L thumb fracture for a total of 11 visit(s). Please see the following information for a summary of their discharge status. 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 with ADLs by d.c Goal:: pt will report no pain greater than 1/10 to improve her ADLs and sleep through the night. LUE no pain Goal:: pt will report return to picking coins/buttons and other FMS at IND. level reports I in buttons and zippers at this time Goal:: pt will report the ability to sleep through the night with no symptoms of tingling by d.c pt will report a reduction of tingling by 70% by d/c Goal:: Pt will demo understanding of using supportive bracing 80% of workday/ADLS to decrease stress on tendon origin to allow healing and decrease pain by end of 2nd session. Goal:100% adherence to protocol: Yes Goal Progress: Goal Met Goal:Daily scar massage when approriate: Yes Goal Progress: Goal Met Goal:ROM equal to unaffected hand: Yes Goal Progress: Goal Met Goal:Flatbed Press Operator/Pinch strength at least 75% of unaffected hand: Yes Goal Progress: Goal Met Goal:Full use of affected hand in daily activities including work: Yes Goal Progress: Progressing Other Goal: pt will improve quick dash by 15 points or more (63.63) in order to improve use of L hand during day to day tasks GOAL MET pt will verbalize/demonstrate 100% accuracy in proper joint protection and positioning GOAL MET Plan Plan: discharge D/C Information Discharge Comments: This 79 year old female seen with dx of L thumb fx. pt progressed in POC with ROM as well as strength and pain reduction. pt has been gradually returning to daily functional tasks. discharge from OT at this time with pt plan to progressively resume normal activity with L hand. d/c sentence: If there are questions or concerns regarding this patient's occupational therapy, please fell free to call me at [phone]. Thank you for the referral of this patient. Sincerely, Angeles De Dios
== END 2025-01-13 19:00 | disposition home or self-care (01) ==
LOC: OT 10:30
PROVIDERS: PCP Nurse Practitioner Family; Referring Provider Nurse Practitioner Family; Visit Provider Nurse Practitioner Family
DX: G56.00 Carpal tunnel syndrome, unspecified upper limb (principal); S62.512D Displaced fracture of proximal phalanx of left thumb, subsequent encounter for fracture with routine healing
CPT/HCPCS: 97035; 97110; 97140; 97166; 97530